=== PATIENT | male | born 1940 ===

== ENCOUNTER 2023-09-18 10:06 | Outpatient (CLI) | payer OTHER, SELFPAY | END 2023-09-18 10:07 | disposition home or self-care (01) | PROVIDERS: PCP Family Medicine; Visit Provider Family Medicine | DX: Z01.818 Encounter for other preprocedural examination (principal); E78.00 Pure hypercholesterolemia, unspecified; I10 Essential (primary) hypertension; Z12.5 Encounter for screening for malignant neoplasm of prostate | CPT/HCPCS: 80053; 80061; G0103 ==

== ENCOUNTER 2023-10-15 11:20 | Day surgery (SDC) | payer OTHER, SELFPAY ==
[2023-10-15 11:34] VITALS: BMI 29.0
[2023-10-15] MEDS: LACTATED RINGERS 1000 ML 1,000 ML 100 ML IV (11:39)
[2023-10-15] MEDS: SODIUM CHLORIDE 0.9 % (FLUSH) 10 ML SYRINGE IVF (11:39)
[2023-10-15 11:45] VITALS: BP 205/101; PULSE 48; RESP 16; TEMP 36.6; O2SAT 97
[2023-10-15 11:49] VITALS: BP 224/107; PULSE 50; RESP 16; O2SAT 95
[2023-10-15 12:11] VITALS: BP 205/101; PULSE 52; RESP 16; O2SAT 97
[2023-10-15 12:13] VITALS: BP 204/112; PULSE 48; RESP 16; O2SAT 97
--- NOTE | 2023-10-15 12:16 | PM.GSPRC ---
Operative Note Date of procedure: 10/15/23 Pre-op diagnosis: 1. Recurrent right inguinal hernia 2. Umbilical hernia Post-op diagnosis: Same Type of Procedure: 1. Laparoscopic repair of recurrent right inguinal hernia 2. Open repair 2 cm umbilical hernia with mesh Indications: Patient is an 83-year-old male with a symptomatic recurrent right inguinal hernia and an umbilical hernia noted on physical exam. He 1st noticed this when he was fishing in May. He has had discomfort that limits his activity. He did previously undergo an open hernia repair bilaterally. After discussion, he agreed to proceed with repair of both hernias. Procedure Description: After discussing the risks and benefits of the procedure, the patient signed informed consent.? The operative site was marked and the patient was brought to the operating room and placed on the operating table in supine position.? Care was taken to pad the patient's pressure points.? The patient was then intubated by anesthesia.??The operative site was then prepped and draped in the usual sterile fashion.? A time-out was then performed. Sterile dressings were then applied. ? The patient was then woken and transported to the recovery area in stable condition. ? The patient tolerated the procedure well. Surgeon: Alejandra Oliva MD
--- NOTE | 2023-10-15 12:25 | SUR.PREOP ---
attempted multiple different BP checks d/t elevated BP's. Dr. Oliva and Dr. Chappell notified of multiple attempts with 30 min between first reading and last. cuff's changed out with no improvement in BP- see vital signs. Dtr brought in at bedside and Dr. Oliva updated that Surgery will be canceled today and recommend f/u with primary to get BP's under control before proceeding with procedure.
--- NOTE | 2023-10-15 12:39 | SUR.PREOP ---
F/u appt with Dr. Chisholm made for 10/15, surgery to be rescheduled for next week with Dr. Oliva. Pt verbalized understanding. Iv removed and patient d/c at 1231
--- NOTE | 2023-10-15 12:50 | W.PM.H&PU ---
History & Physical Update History & Physical Update H&P Reviewed and patient assessed: The following changes are noted below H&P Updates: Sreekanth presents today for right inguinal hernia. Unfortunately his blood pressure was over 200 systolic on multiple checks. He did have a recent EKG which showed sinus bradycardia. This was during a preop physical for eye surgery. He is asymptomatic from this. Because of his persistently high blood pressure it was felt that surgery should be delayed. We do have him in to see his primary care provider tomorrow. We have rescheduled him for next week provided his blood pressure is under better control.
== END 2023-10-15 11:25 | disposition home or self-care (01) ==
PROVIDERS: PCP Family Medicine; Visit Provider Surgery
PROC: (CPT 49650; principal; 2023-10-15 13:00)
DX: Z53.09 Procedure and treatment not carried out because of other contraindication (principal); K40.90 Unilateral inguinal hernia, without obstruction or gangrene, not specified as recurrent; R00.1 Bradycardia, unspecified; I10 Essential (primary) hypertension
CPT/HCPCS: J7120

== ENCOUNTER 2024-12-30 14:45 | Outpatient (CLI) | payer OTHER, SELFPAY | END 2024-12-30 14:46 | disposition home or self-care (01) | PROVIDERS: PCP Family Medicine; Visit Provider Family Medicine | DX: I10 Essential (primary) hypertension (principal); E78.00 Pure hypercholesterolemia, unspecified; R53.83 Other fatigue; R97.20 Elevated prostate specific antigen [PSA] | CPT/HCPCS: 80053; 80061; 82043; 82306; 82570; 84153; 84154; 84443 ==